=== PATIENT | female | born 1940 | race Hispanic/Latino ===

== ENCOUNTER 2019-01-24 08:34 | Day surgery (SDC) | payer OTHER ==
[2019-01-22 09:09] LABS: BASOPHILS % (AUTO) 1.4 % (0.0-5.0); EOSINOPHILS % (AUTO) 2.8 % (0.0-8.0); HEMATOCRIT 34.6 % (36-48); LYMPHOCYTES % (AUTO) 22.5 % (21.0-51.0); MEAN CORPUSCULAR HEMOGLOBIN 27.7 pg (27.0-33.0); MEAN CORPUSCULAR HGB CONC 32.3 g/dL (32.0-36.0); MEAN CORPUSCULAR VOLUME 85.5 fL (79-99); MONOCYTES % (AUTO) 9.5 % (3.0-13.0); NEUTROPHILS % (AUTO) 63.8 % (40.0-77.0); PLATELET COUNT (AUTO) 145 K/uL (130-400); RED BLOOD CELL COUNT(AUTO) 4.04 MIL/uL (4.00-5.50); RED CELL DISTRIBUTION WIDTH 14.6 % (11.0-15.5); WHITE BLOOD COUNT (AUTO) 4.3 K/uL (4.8-10.8)
[2019-01-22 09:15] VITALS: BP 140/99
[2019-01-22 09:15] LABS: CREATININE 1.2 mg/dL (0.5-1.5); POTASSIUM 4.1 mmol/L (3.5-5.1)
[2019-01-22 09:29] LABS: APPEARANCE,URINE Clear (CLEAR); BILIRUBIN,URINE Negative (NEGATIVE); COLOR,URINE Yellow (YELLOW); GLUCOSE, URINE (UA) Negative (NEGATIVE); KETONES,URINE Negative (NEGATIVE); LEUKOCYTE ESTERASE ,URINE Negative (NEGATIVE); NITRATE,URINE Negative (NEGATIVE); OCCULT BLOOD,URINE Negative (NEGATIVE); PROTEIN,URINE Negative (NEGATIVE); UROBILINOGEN,URINE 0.2 mg/dL (0.2-1.0)
[2019-01-22 09:31] LABS: INR 0.99 (0.85-1.15); PARTIAL THROMBOPLASTIN TIME 24.3 SEC (26.3-35.5); PROTHROMBIN TIME 10.4 SEC (9.6-11.6)
[2019-01-24] VITALS (12 sets, daily range): BP systolic 116–188; BP diastolic 67–101
[~2019-01-24] VITALS: Ht 162.6 cm; Wt 68.4 kg
[~2019-01-24 08:34] MED LIST: AMIL5TAB8 PO; ASPI-555 PO; CARV12.511 PO; LOSA1TAB42 PO; PRAV40TA3 PO; SODIUM CHLORIDE 0.9% 500ML 500 ML IV SCH
[2019-01-24] MEDS ORDERED: SODIUM CHLORIDE 0.9% 1000ML 1,000 ML IV ONE (09:02)
[2019-01-24] MEDS ORDERED: LOSA1TAB54 PO (09:23)
[2019-01-24] MEDS ORDERED: IOHEXOL-350 50ML VIAL IV ONE (09:31)
[2019-01-24] MEDS ORDERED: IOHEXOL 350 MG/ML 100ML INFUS..BTL IV ONE (09:31)
[2019-01-24] MEDS ORDERED: LIDOCAINE HCL 2% 20ML ONE ×2 (09:31→10:27)
[2019-01-24] MEDS ORDERED: NITROGLYCERIN 5 MG/ML 10 ML VIAL IV ONE (09:31)
[2019-01-24] MEDS ORDERED: FENTANYL CITRATE PF 50 MCG/1 ML 2ML VIAL ONE (10:26)
[2019-01-24] MEDS ORDERED: MIDAZOLAM HCL 1 MG/ML 2ML VIAL ONE (10:26)
[2019-01-24] MEDS ORDERED: HEPARIN SODIUM 1000UNIT/ML 10ML VIAL ONE (10:47)
[2019-01-24] MEDS ORDERED: DOBUTAMINE 250MG/D5 250ML 250 ML IV ONE (10:59)
[2019-01-24] MEDS ORDERED: LABETALOL 20 MG/4 ML DISP.SYRIN IV ONE (11:23)
[2019-01-24] MEDS ORDERED: SODIUM CHLORIDE 0.9% 1000ML 1,000 ML IV SCH (11:41)
[2019-01-24] MEDS ORDERED: HYDRALAZINE HCL 20 MG/ML VIAL ONE (11:41)
[2019-01-24] MEDS ORDERED: CARVEDILOL 12.5 MG TABLET PO SCH (21:00)
[2019-01-24] MEDS ORDERED: ATORVASTATIN CALCIUM 10 MG TABLET PO SCH (21:00)
[2019-01-25] MEDS ORDERED: AMILORIDE HCL 5 MG TABLET PO SCH (09:00)
[2019-01-25] MEDS ORDERED: ASPIRIN 81MG TAB.CHEW PO SCH (09:00)
[2019-01-25] MEDS ORDERED: LOSARTAN/HYDROCHLOROTHIAZIDE 50-12.5MG TABLET PO SCH (09:00)
== END 2019-01-24 18:30 | disposition home or self-care (01) ==
LOC: DAH 08:34
PROVIDERS: ATTEND Internal Medicine Cardiovascular Disease
DX: I25.10 Atherosclerotic heart disease of native coronary artery without angina pectoris (principal); I05.0 Rheumatic mitral stenosis; I47.1 Supraventricular tachycardia; E78.5 Hyperlipidemia, unspecified; Z98.890 Other specified postprocedural states; Z82.49 Family history of ischemic heart disease and other diseases of the circulatory system; I27.22 Pulmonary hypertension due to left heart disease; I11.0 Hypertensive heart disease with heart failure; I50.32 Chronic diastolic (congestive) heart failure; Z79.01 Long term (current) use of anticoagulants
CPT/HCPCS: 36415; 71045; 80048; 81003; 85025; 85610; 85730; 93005; 93460; 93463; A4606; C1760; C1769 ×2; C1894 ×2; J0360; J1250; J1644 ×2; J2250; J3010; J3490 ×3; J7030; Q9965; Q9967 ×2; 99156; 99157

== ENCOUNTER 2019-02-06 05:32 | Inpatient (IN) | payer OTHER | END 2019-02-10 18:34 | disposition home or self-care (01) | LOC: DAHIP 05:32 → 2DH 02-09 15:25 → 2CV 12:08 → 2CH 02-07 17:55 | PROC: 02RG0JZ Replacement of Mitral Valve with Synthetic Substitute, Open Approach (ICD-10-PCS; principal; 2019-02-06 08:00) | PROC: 02L70ZK Occlusion of Left Atrial Appendage, Open Approach (ICD-10-PCS; 2019-02-06 08:00) | DX: I05.0 Rheumatic mitral stenosis (principal); I27.20 Pulmonary hypertension, unspecified ==

== ENCOUNTER 2019-05-14 06:27 | Day surgery (SDC) | payer OTHER, MEDICARE ==
[2019-05-11 12:31] VITALS: BP 134/80
[2019-05-11 12:44] LABS: BASOPHILS % (AUTO) 1.3 % (0.0-5.0); EOSINOPHILS % (AUTO) 4.5 % (0.0-8.0); HEMATOCRIT 32.7 % (36-48); LYMPHOCYTES % (AUTO) 22.5 % (21.0-51.0); MEAN CORPUSCULAR HEMOGLOBIN 24.7 pg (27.0-33.0); MEAN CORPUSCULAR HGB CONC 31.4 g/dL (32.0-36.0); MEAN CORPUSCULAR VOLUME 78.5 fL (79-99); NEUTROPHILS % (AUTO) 63.7 % (40.0-77.0); PLATELET COUNT (AUTO) 181 K/uL (130-400); RED BLOOD CELL COUNT(AUTO) 4.16 MIL/uL (4.00-5.50); RED CELL DISTRIBUTION WIDTH 14.5 % (11.0-15.5); WHITE BLOOD COUNT (AUTO) 5.4 K/uL (4.8-10.8)
[2019-05-11 12:45] LABS: APPEARANCE,URINE Clear (CLEAR); BILIRUBIN,URINE Negative (NEGATIVE); COLOR,URINE Yellow (YELLOW); GLUCOSE, URINE (UA) Negative (NEGATIVE); KETONES,URINE Negative (NEGATIVE); LEUKOCYTE ESTERASE ,URINE Trace (NEGATIVE); NITRATE,URINE Negative (NEGATIVE); OCCULT BLOOD,URINE Negative (NEGATIVE); PH,URINE 7.5 (5.0-8.0); PROTEIN,URINE Trace mg/dL (NEGATIVE)
[2019-05-11 12:59] LABS: CREATININE 1.3 mg/dL (0.5-1.5); POTASSIUM 4.7 mmol/L (3.5-5.1)
[2019-05-11 13:00] LABS: INR 1.02 (0.85-1.15); PARTIAL THROMBOPLASTIN TIME 24.8 SEC (26.3-35.5); PROTHROMBIN TIME 10.7 SEC (9.6-11.6)
[2019-05-11 13:21] LABS: BACTERIA,URINE Rare /HPF (None Seen); RBC,URINE None Seen /HPF (0-1); SQUAMOUS EPITHELIAL CELL,UR 0-2 /HPF (0-2); WBC,URINE 0-1 /HPF (0-1)
--- NOTE | 2019-05-11 16:28 | NUR ---
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
[2019-05-14] VITALS (7 sets, daily range): BP systolic 144–168; BP diastolic 81–96
[~2019-05-14] VITALS: Ht 162.6 cm; Wt 65.4 kg
[~2019-05-14 06:27] MED LIST changes: +ASPI-1181 PO; -ASPI-555 PO; -LOSA1TAB42 PO
--- NOTE | 2019-05-14 06:30 | NUR ---
PATIENT ARRIVED PATIENT ARRIVED TO DAY PATIENT ACCOMPANIED BY HER SISTER (EMMA). PATIENT AAOX3, RESPIRATIONS UNLABORED, VITAL SIGNS STABLE. PROCEDURE VERIFIED AND CONFIRMED WITH PATIENT. PROCEDURE EXPLAINED TO PATIENT AND PATIENT VERBALIZED UNDERSTANDING. PATIENT'S SISTER WAS INSTRUCTED TO STAY IN ROOM IN ORDER TO SPEAK WITH DOCTOR AFTER PROCEDURE IS COMPLETE, SHE VERBALIZED UNDERSTANDING.
[2019-05-14] MEDS ORDERED: SODIUM CHLORIDE 0.9% 1000ML 1,000 ML IV ONE (07:32)
[2019-05-14] MEDS ORDERED: NITROGLYCERIN 5 MG/ML 10 ML VIAL IV ONE (08:26)
[2019-05-14] MEDS ORDERED: HEPARIN SODIUM 1000UNIT/ML 10ML VIAL ONE (08:26)
[2019-05-14] MEDS ORDERED: LIDOCAINE HCL 2% 20ML ONE (08:27)
--- NOTE | 2019-05-14 08:33 | NUR ---
patient transferred PATIENT TAKEN TO REGISTERED ROUTE ASSOCIATE VIA BED BY GHADA MATA AND GHADA MONTGOMERY. PATIENT'S SISTER INSTRUCTED TO WAIT FOR PATIENT AT BEDSIDE IN ORDER TO SPEAK WITH DR YOUSIF AFTER PPROCEDURE IS COMPLETE.
[2019-05-14] MEDS ORDERED: AMLODIPINE BESYLATE 2.5 MG TAB PO SCH (10:00)
--- NOTE | 2019-05-14 10:15 | NUR ---
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 PATIENT AAOX3, RESPIRATIONS UNLABORED, VITAL SIGNS STABLE. DRESSING TO UPPER RIGHT CHEST WITH GAUZE AND OPSITE. DRESSING DRY AND INTACT, NO BLEEDING, NO DRAINAGE, NO HEMATOMA PRESENT. PATIENT DENIES ANY PAIN AT THIS TIME. FAMILY MEMBER AT BEDSIDE.
--- NOTE | 2019-05-14 12:00 | NUR ---
PATIENT DISCHARGED DISCHARGE INSTRUCTIONS EXPLAINED TO PATIENT AND PATIENT'S SISTER, BOTH VERBALIZED UNDERSTANDING. FOLLOW UP APPOINTMENTS PROVIDED, SIGNS/SYMPTOMS OF INFECTION WERE EXPLAINED TO PATIENT. WARNING SIGNS AND WHEN TO SEEK MEDICAL HELP WAS EXPLAINED AND PATIENT/PATIENT'S SISTER VERBALIZED UNDERSTANDING. ALL QUESTIONS/CONCERNS ADDRESSED. PRESCRIPTION PROVIDED AND DISCHARGE MEDICATIONS EXPLAINED TO PATIENT AND PATIENT VERBALIZED UNDERSTANDING. PATIENT TAKEN TO PRIVATE VEHICLE VIA WHEELCHAIR AND WAS ABLE TO GET INTO VEHICLE UNASSISTED.
== END 2019-05-14 12:00 | disposition home or self-care (01) ==
LOC: DAH 06:27
PROVIDERS: ATTEND Internal Medicine Cardiovascular Disease
DX: I49.8 Other specified cardiac arrhythmias (principal); I06.0 Rheumatic aortic stenosis; I27.22 Pulmonary hypertension due to left heart disease; I11.0 Hypertensive heart disease with heart failure; I50.32 Chronic diastolic (congestive) heart failure; Z79.82 Long term (current) use of aspirin; Z79.899 Other long term (current) drug therapy; E78.5 Hyperlipidemia, unspecified; Z95.2 Presence of prosthetic heart valve; Z98.890 Other specified postprocedural states; Z82.49 Family history of ischemic heart disease and other diseases of the circulatory system; Z83.3 Family history of diabetes mellitus
CPT/HCPCS: 36415; 71045; 80048; 81001; 85025; 85610; 85730; 93005; 93451; A4215; A4216; A4221; A4222; A4223 ×3; A4606; C1894 ×2; J1644; J3490; J7030

== ENCOUNTER 2019-10-13 00:46 | Emergency (ER) | payer OTHER, MEDICARE ==
[~2019-10-13 00:46] MED LIST changes: -SODIUM CHLORIDE 0.9% 500ML 500 ML IV SCH
[2019-10-13] MEDS ORDERED: HYDROCODONE/ACETAMINOPHEN 10/325 MG TAB ONE (01:08)
[2019-10-13] MEDS ORDERED: KETOROLAC TROMETHAMINE 15MG/ML ONE (01:41)
== END 2019-10-13 02:13 | disposition home or self-care (01) ==
LOC: EDH 00:46
DX: S52.591A Other fractures of lower end of right radius, initial encounter for closed fracture (principal); I10 Essential (primary) hypertension; Z95.2 Presence of prosthetic heart valve; W01.198A Fall on same level from slipping, tripping and stumbling with subsequent striking against other object, initial encounter; Y93.89 Activity, other specified; Y92.89 Other specified places as the place of occurrence of the external cause; Y99.8 Other external cause status
CPT/HCPCS: 29125; 73110; 96372; 99284; J1885

== ENCOUNTER → 2023-07-13 | Outpatient (CLI) | payer OTHER, MEDICARE ==
[~2023-07-13] MED LIST changes: -ASPI-1181 PO; +ASPI-1443 PO
[2023-07-13 12:18] LABS: BASOPHILS # (AUTO) 0.07 K/uL (0.00-0.20); BASOPHILS % (AUTO) 1.1 % (0.0-5.0); EOSINOPHILS # (AUTO) 0.17 K/uL (0.00-0.70); EOSINOPHILS % (AUTO) 2.7 % (0.0-8.0); HEMATOCRIT 33.5 % (36-48); IMMATURE GRANULOCYTE ABSOLUTE 0.01 K/uL (0-1); LYMPHOCYTES # (AUTO) 1.5 K/uL (1.0-4.8); LYMPHOCYTES % (AUTO) 24.5 % (21.0-51.0); MEAN CORPUSCULAR HEMOGLOBIN 27.4 pg (27.0-33.0); MEAN CORPUSCULAR VOLUME 88.2 fL (79-99); MONOCYTES # (AUTO) 0.5 K/uL (0.1-1.0); MONOCYTES % (AUTO) 7.7 % (3.0-13.0); NEUTROPHILS % (AUTO) 63.8 % (40.0-77.0); PLATELET COUNT (AUTO) 178 K/uL (130-400); RED CELL DISTRIBUTION WIDTH 12.8 % (11.0-15.5); WHITE BLOOD COUNT (AUTO) 6.3 K/uL (4.8-10.8)
[2023-07-13 12:33] LABS: ALBUMIN 3.3 g/dL (3.5-5.0); BILIRUBIN,TOTAL 0.4 mg/dL (0.2-1.0); CREATININE 2.3 mg/dL (0.5-1.5); POTASSIUM 4.3 mmol/L (3.5-5.1); TOTAL PROTEIN, SERUM 7.7 g/dL (6.0-8.3)
== END | disposition home or self-care (01) ==
LOC: LAB 09:16
PROVIDERS: ATTEND Internal Medicine Cardiovascular Disease
DX: I10 Essential (primary) hypertension (principal)
CPT/HCPCS: 36415; 80053; 80061; 85025

== ENCOUNTER 2023-10-28 12:53 | Inpatient (IN) | payer OTHER, MEDICARE ==
[2023-10-28] VITALS (21 sets, daily range): BP systolic 119–190; BP diastolic 59–104; PULSE 54–66; RESP 14–23; O2SAT 97
[~2023-10-28] VITALS: Ht 160 cm; Wt 62.9 kg
[2023-10-28 14:31] LABS: BASOPHILS # (AUTO) 0.04 K/uL (0.00-0.20); BASOPHILS % (AUTO) 0.5 % (0.0-5.0); EOSINOPHILS # (AUTO) 0.15 K/uL (0.00-0.70); EOSINOPHILS % (AUTO) 1.9 % (0.0-8.0); HEMATOCRIT 34.5 % (36-48); IMMATURE GRANULOCYTE ABSOLUTE 0.02 K/uL (0-1); LYMPHOCYTES # (AUTO) 1.2 K/uL (1.0-4.8); LYMPHOCYTES % (AUTO) 15.7 % (21.0-51.0); MEAN CORPUSCULAR HEMOGLOBIN 27.8 pg (27.0-33.0); MEAN CORPUSCULAR HGB CONC 32.8 g/dL (32.0-36.0); MEAN CORPUSCULAR VOLUME 84.8 fL (79-99); MONOCYTES # (AUTO) 0.6 K/uL (0.1-1.0); MONOCYTES % (AUTO) 8.2 % (3.0-13.0); NEUTROPHILS # (AUTO) 5.8 K/uL (1.8-7.7); NEUTROPHILS % (AUTO) 73.4 % (40.0-77.0); PLATELET COUNT (AUTO) 151 K/uL (130-400); RED BLOOD CELL COUNT(AUTO) 4.07 MIL/uL (4.00-5.50); RED CELL DISTRIBUTION WIDTH 13.6 % (11.0-15.5); WHITE BLOOD COUNT (AUTO) 7.8 K/uL (4.8-10.8)
[2023-10-28 14:45] LABS: CREATININE 1.6 mg/dL (0.5-1.5); POTASSIUM 4.3 mmol/L (3.5-5.1)
[2023-10-28 14:50] LABS: ALBUMIN 3.7 g/dL (3.5-5.0); BILIRUBIN,TOTAL 0.6 mg/dL (0.2-1.0); TOTAL PROTEIN, SERUM 7.8 g/dL (6.0-8.3)
[2023-10-28 15:01] LABS: B-TYPE NATRIURETIC PEPTIDE 412 pg/mL (0-100)
[2023-10-28] MEDS: HYDRALAZINE 20MG/ML VIAL IV ONE (16:07)
[2023-10-28] MEDS ORDERED: ACETAMINOPHEN 650 MG SUPPOSITORY RC PRN (16:30)
[2023-10-28] MEDS ORDERED: ONDANSETRON 4MG INJ IVP PRN (16:30)
[2023-10-28] MEDS ORDERED: LACTULOSE 20 GM/30 ML UDCUP PO PRN (16:30)
[2023-10-28] MEDS ORDERED: ACETAMINOPHEN 325 MG TAB PO PRN (16:30)
[2023-10-28] MEDS: ENOXAPARIN SODIUM 60 MG/0.6 ML SQ ONE (16:30)
[2023-10-28] MEDS: ASPIRIN 325MG TAB PO ONE (16:30)
[2023-10-28] MEDS ORDERED: DOCU100P MC (17:58)
[2023-10-28] MEDS ORDERED: TRAM50TA4 PO ×2 (17:58→20:05)
[2023-10-28] MEDS ORDERED: FERS325 PO (17:58)
[2023-10-28] MEDS: CLONIDINE HCL 0.1 MG TABLET PO PRN (18:09)
[2023-10-28] MEDS: NICARDIPINE IV PRN (19:40)
[2023-10-28] MEDS: NACL 0.9% IV PRN (19:40)
[2023-10-28] MEDS: ASPIRIN 325MG TAB PO SCH (21:12)
[2023-10-28] MEDS: ENOXAPARIN SODIUM 60 MG/0.6 ML SQ SCH (21:13)
[2023-10-28] MEDS ORDERED: SODIUM BICARB 50MEQ 50ML VIAL IV ONE (22:00)
[2023-10-28] MEDS: HYDRALAZINE 20MG/ML VIAL IV PRN (23:15)
[2023-10-28 23:39] LABS: SARS-CoV-2, RNA, NAAT NEGATIVE SARS CoV-2 (NEGATIVE)
[2023-10-28 23:45] LABS: INFLUENZA TYPE A Negative For Type A (NEGATIVE); INFLUENZA TYPE B Negative For Type B (NEGATIVE)
[2023-10-29] VITALS (40 sets, daily range): BP systolic 120–187; BP diastolic 58–94; PULSE 54–67; RESP 9–23; O2SAT 98–99
[2023-10-29 04:19] LABS: BASOPHILS # (AUTO) 0.05 K/uL (0.00-0.20); EOSINOPHILS # (AUTO) 0.08 K/uL (0.00-0.70); EOSINOPHILS % (AUTO) 1.6 % (0.0-8.0); HEMATOCRIT 33.3 % (36-48); IMMATURE GRANULOCYTE ABSOLUTE 0.01 K/uL (0-1); LYMPHOCYTES # (AUTO) 1.1 K/uL (1.0-4.8); LYMPHOCYTES % (AUTO) 21.6 % (21.0-51.0); MEAN CORPUSCULAR HEMOGLOBIN 27.8 pg (27.0-33.0); MEAN CORPUSCULAR HGB CONC 32.4 g/dL (32.0-36.0); MEAN CORPUSCULAR VOLUME 85.6 fL (79-99); MONOCYTES # (AUTO) 0.5 K/uL (0.1-1.0); MONOCYTES % (AUTO) 10.9 % (3.0-13.0); NEUTROPHILS # (AUTO) 3.1 K/uL (1.8-7.7); NEUTROPHILS % (AUTO) 64.7 % (40.0-77.0); PLATELET COUNT (AUTO) 138 K/uL (130-400); RED BLOOD CELL COUNT(AUTO) 3.89 MIL/uL (4.00-5.50); RED CELL DISTRIBUTION WIDTH 13.6 % (11.0-15.5); WHITE BLOOD COUNT (AUTO) 4.9 K/uL (4.8-10.8)
[2023-10-29 04:25] LABS: CREATININE 1.5 mg/dL (0.5-1.5); MAGNESIUM 2.2 mg/dL (1.80-2.40); POTASSIUM 3.4 mmol/L (3.5-5.1)
[2023-10-29 05:49] LABS: B-TYPE NATRIURETIC PEPTIDE 375 pg/mL (0-100)
[2023-10-29] MEDS ORDERED: DOCUSATE SODIUM 100 MG CAP PO PRN (06:00)
[2023-10-29] MEDS: POTASSIUM CHLORIDE 10MEQ SR TAB PO ONE (06:17)
[2023-10-29] MEDS: FERROUS SULFATE 325 MG TABLET.DR PO SCH (09:02)
[2023-10-29] MEDS: CARVEDILOL 12.5 MG TABLET PO SCH (09:03)
[2023-10-29] MEDS: PANTOPRAZOLE 40 MG TAB DR PO SCH (09:03)
[2023-10-29] MEDS: ASPIRIN 81MG CHEW TAB PO SCH (09:03)
[2023-10-29] MEDS: ENOXAPARIN SODIUM 30 MG/0.3 ML SQ SCH (09:04)
[2023-10-29] MEDS: HYDRALAZINE HCL 10 MG TABLET PO SCH (14:06)
[2023-10-29] MEDS: TRAMADOL HCL 50 MG TABLET PO PRN (20:03)
[2023-10-30] VITALS (9 sets, daily range): BP systolic 132–176; BP diastolic 53–88; PULSE 53–58; RESP 16–20; O2SAT 98
[2023-10-30 08:53] LABS: APPEARANCE,URINE CLEAR (CLEAR); BILIRUBIN,URINE NEGATIVE (NEGATIVE); COLOR,URINE LIGHT-YELLOW (YELLOW); GLUCOSE, URINE (UA) NEGATIVE (NEGATIVE); KETONES,URINE NEGATIVE (NEGATIVE); LEUKOCYTE ESTERASE ,URINE 75 Leu/uL (NEGATIVE); NITRATE,URINE NEGATIVE (NEGATIVE); OCCULT BLOOD,URINE NEGATIVE (NEGATIVE); PH,URINE 5.5 (5.0-8.0); PROTEIN,URINE 20 mg/dL (NEGATIVE); UROBILINOGEN,URINE 0.2 mg/dL (0.2-1.0)
[2023-10-30 09:01] LABS: ADD UA MICROSCOPIC YES
[2023-10-30 09:02] LABS: BACTERIA,URINE RARE /HPF (None Seen); SQUAMOUS EPITHELIAL CELL,UR RARE /HPF (0-2)
[2023-10-30] MEDS: HYDRALAZINE 25MG TABLET PO SCH (13:27)
[2023-10-31] VITALS (7 sets, daily range): BP systolic 121–186; BP diastolic 55–88; PULSE 52–56; RESP 18–20; O2SAT 100
[2023-10-31 05:03] LABS: HEMATOCRIT 29.7 % (36-48); MEAN CORPUSCULAR HEMOGLOBIN 28.2 pg (27.0-33.0); MEAN CORPUSCULAR HGB CONC 31.6 g/dL (32.0-36.0); MEAN CORPUSCULAR VOLUME 89.2 fL (79-99); RED BLOOD CELL COUNT(AUTO) 3.33 MIL/uL (4.00-5.50); RED CELL DISTRIBUTION WIDTH 13.7 % (11.0-15.5); WHITE BLOOD COUNT (AUTO) 4.7 K/uL (4.8-10.8)
[2023-10-31 05:17] LABS: CREATININE 1.5 mg/dL (0.5-1.5); MAGNESIUM 2.2 mg/dL (1.80-2.40); POTASSIUM 3.1 mmol/L (3.5-5.1)
[2023-10-31] MEDS: HYDRALAZINE 25MG TABLET PO SCH (09:45)
[2023-10-31] MEDS ORDERED: POTASSIUM CHLORIDE 10% ELIXIR 20 MEQ/15 ML UDCUP PO PRN (10:30)
[2023-10-31] MEDS ORDERED: POTASSIUM CHLORIDE 20MEQ/100ML 100 ML IV PRN (10:30)
[2023-10-31] MEDS: KCL 20 MEQ ERTAB PO PRN (11:24)
[2023-10-31] MEDS ORDERED: LOSA25TA41 PO (16:52)
[2023-10-31] MEDS ORDERED: HYDR50TA37 PO (16:52)
== END 2023-10-31 17:40 | disposition home or self-care (01) | DRG 282 ==
LOC: EDH 14:49 → EDHIP 16:05 → 2BH 17:41 → 3AH 10-29 10:40
PROVIDERS: ADMIT Internal Medicine Pulmonary Disease; ATTEND Internal Medicine Pulmonary Disease
DX: I16.1 Hypertensive emergency (principal); I21.A1 Myocardial infarction type 2; Z20.822 Contact with and (suspected) exposure to COVID-19; I12.9 Hypertensive chronic kidney disease with stage 1 through stage 4 chronic kidney disease, or unspecified chronic kidney disease; D63.8 Anemia in other chronic diseases classified elsewhere; N18.32 Chronic kidney disease, stage 3b; E78.00 Pure hypercholesterolemia, unspecified; Z63.4 Disappearance and death of family member; Z79.82 Long term (current) use of aspirin; Z95.2 Presence of prosthetic heart valve
CPT/HCPCS: 36415; 71045; 80048; 80053; 81001; 82948; 83735; 83880; 84132; 84484; 85025; 85027; 87088; 87635; 87804; 93005; G0378; J0360; J1650

== ENCOUNTER → 2024-04-16 | Outpatient (CLI) | payer OTHER, MEDICARE ==
[~2024-04-16] MED LIST changes: -AMIL5TAB8 PO; -ASPI-1443 PO; +DOCU100P MC; +FERS325 PO; +HYDR50TA37 PO; +LOSA25TA41 PO; +TRAM50TA4 PO
[2024-04-16 12:49] LABS: CREATININE 1.7 mg/dL (0.5-1.0); POTASSIUM 3.8 mmol/L (3.5-5.1)
== END | disposition home or self-care (01) ==
LOC: LAB 09:37
PROVIDERS: ATTEND Internal Medicine Cardiovascular Disease
DX: I35.0 Nonrheumatic aortic (valve) stenosis (principal); N18.31 Chronic kidney disease, stage 3a
CPT/HCPCS: 36415; 80048

== ENCOUNTER → 2024-07-19 | Outpatient (CLI) | payer OTHER, MEDICARE ==
[2024-07-19 12:32] LABS: CREATININE 1.9 mg/dL (0.5-1.0); MAGNESIUM 2.1 mg/dL (1.80-2.40); POTASSIUM 3.8 mmol/L (3.5-5.1)
== END | disposition home or self-care (01) ==
LOC: LAB 09:33
PROVIDERS: ATTEND Internal Medicine Cardiovascular Disease
DX: I10 Essential (primary) hypertension (principal)
CPT/HCPCS: 36415; 80048; 83735